=== PATIENT | female | born 1965 | race Two or more races ===

== ENCOUNTER 2016-09-10 06:47 | Day surgery (SDC) | payer BC, OTHER ==
[2016-09-10] MEDS ORDERED: LACTATED RINGERS 1,000 ML ONE (06:59)
[2016-09-10] MEDS ORDERED: IV START KIT ONE (06:59)
[2016-09-10] MEDS ORDERED: MIDAZOLAM HCL 5 MG/5 ML VIAL IV PRN (07:45)
[2016-09-10] MEDS ORDERED: LIDOCAINE Viscous 2% 15 ML UDCUP PO PRN (07:45)
[2016-09-10] MEDS ORDERED: FENTANYL 250 MCG/5 ML AMP IV PRN (07:45)
[2016-09-10] MEDS ORDERED: LACTATED RINGERS 1,000 ML IV SCH (07:45)
[2016-09-10 13:05] LABS: HELICOBACTER PYLORII DETECTION NEGATIVE (NEGATIVE)
--- NOTE | 2016-09-12 14:55 | SURGPATH ---
[employer] [address] [place] [id number] Patient Name: SHAHRAM RANDHAWA MR#: [id number] : 1965 Gender: F Specimen #: [id number] Collected: 09/10/2016 Received: 09/11/2016 Reported: 09/12/2016 Submitting Phys: AARTI LOCKE Copy To Phys: [facility] Clinical History / Pre-Operative Diagnosis: HEARTBURN; NAUSEA; DYSPHAGIA; RULE OUT GIARDIA AND CELIAC SPRUE Specimen Source / Surgical Procedure Performed: #1-DUODENAL BIOPSY; #2-ANTRAL BIOPSY Interpretation: 1. DUODENUM, BIOPSY: - NO PATHOLOGIC ABNORMALITY 2. 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 Gross Description: #1 The specimen is received in a formalin filled container labeled with the patient's name and "duodenal biopsy". Three almeida biopsies are each 0.3 cm. Totally embedded in cassette #1. #2 The specimen is received in a formalin filled container labeled with the patient's name and "antral biopsy". Two almeida biopsies are 0.3 and 0.4 cm. Totally embedded in cassette #2. Priscilla Omalley Microscopic Description: Microscopic performed. Helicobacter immunostain performed after examination of routine stain. (Analyte-specific reagents (ASR) are used in many laboratory tests necessary for standard medical care and generally do not require FDA approval. This test was developed and its performance characteristics determined by [facility] [employer]. It has not been cleared or approved by the U.S. Food and Drug Administration. [facility] is certified under the Clinical Laboratory Improvement Amendments of 1988 as qualified to perform high complexity clinical laboratory testing. All controls stain as expected.) 1: 43006 2: 10009, 53276 K29.30
--- NOTE | 2016-09-13 08:42 | PROCNOTE ---
Yola Griffin : 1965 [id number] DATE: 09/13/2016 This 51-year-old female patient within the practice of Dr. Fern Toledo underwent upper endoscopy on September 10 for heartburn, nausea, and dysphagia. Gastritis was noted. Antral biopsies confirmed the presence of H-pylori within the stomach. Biaxin and metronidazole both 500 mg twice daily for 10 days have been added to her prescriptions of pantoprazole and sucralfate. Medical follow up will be by Dr. Fern Toledo. JOB: [id number] CC: Dr. Fern Toledo
== END 2016-09-10 09:19 | disposition home or self-care (01) ==
LOC: SDC 06:47
PROVIDERS: ATTEND Internal Medicine Gastroenterology
PROC: 0DB98ZX Excision of Duodenum, Via Natural or Artificial Opening Endoscopic, Diagnostic (ICD-10-PCS; principal; 2016-09-10)
PROC: 0DB68ZX Excision of Stomach, Via Natural or Artificial Opening Endoscopic, Diagnostic (ICD-10-PCS; 2016-09-10)
DX: K29.50 Unspecified chronic gastritis without bleeding (principal); B96.81 Helicobacter pylori [H. pylori] as the cause of diseases classified elsewhere; K29.80 Duodenitis without bleeding; I10 Essential (primary) hypertension
CPT/HCPCS: 43239; 87081; J3010; J2250; A9270; J7120